=== PATIENT | female | born 1990 | race Caucasian/White ===

== ENCOUNTER 2020-09-12 09:30 | Emergency (ER) | payer MEDICARE, MEDICAID, SELFPAY ==
[2020-09-12 09:31] VITALS: BP 157/65; PULSE 90; RESP 20; TEMP 36.7; O2SAT 99; BMI 38.5
--- NOTE | 2020-09-12 09:39 | ED_ITS ---
HPI - Back Pain/Injury General: Chief Complaint: Back Pain/Injury Stated Complaint: LOW BACK PAIN Time Seen by Provider: 09/12/20 09:31 Source: patient Mode of arrival: EMS History of Present Illness: HPI Narrative: 30-year-old female presented with complaints of low back pain since yesterday. She was standing at the counter, making a sandwich, she felt a pop and sudden pain in her low back., the pain has been continuous since then. Worse with movement-especially bending, getting out of bed, better with rest. Pain does not radiate. No weakness or numbness in her legs. No bowel or bladder changes. No fever. She took some [id number]-ufemlac Tylenol last night, otherwise has not taken anything yet today. No dysuria. She denies any history of back pain. Onset (ago): day(s) Similar Symptoms Previously: No Quality: sharp, stabbing and spasming Radiation: none Associated symptoms: Deny abdominal pain, chills, dysuria, fatigue, fever(s), nausea, syncope or vomiting Review of Systems General: Reports: 10 or more systems reviewed and unremarkable except in HPI and below Const: Denies: fever(s), chills, fatigue, night sweats or diaphoresis Card: Denies: chest pain, palpitations or syncope Resp: Denies: dyspnea, productive cough or pain on inspiration GI: Denies: abdominal pain, nausea or vomiting : Denies: flank pain, difficulty voiding, dysuria or urinary frequency Musc: Reports: back pain and limited range of motion; Denies: neck pain, extremity pain, muscle weakness or decrease in muscle mass Skin/Breast: Denies: rash or erythema Neuro: Denies: numbness in extremities or weakness in extremities Endo: Denies: polyuria or polydipsia Joel/Lymph: Denies: easy bruising or easy bleeding Physical Exam Const: COMMON NORMALS: alert GENERAL APPEARANCE: cooperative and anxious; not in distress and not diaphoretic NUTRITIONAL APPEARANCE: obese morbidly obese ORIENTATION/CONSCIOUSNESS: Yes awake, Yes oriented to person, Yes oriented to place and Yes oriented to time HENMT: COMMON NORMALS: normocephalic, atraumatic and Normal external nose present HEAD & SCALP: normocephalic and atraumatic FACE & SINUS: normal facial exam and face symmetric NOSE: Normal external nose present Eye: COMMON NORMALS: Equal, round and reactive pupils present, EOMs intact bilaterally and no scleral icterus PUPIL: Yes Equal, round and reactive pupils present Neck/C-Spine: COMMON NORMALS: full ROM and no lymphadenopathy Resp: COMMON NORMALS: normal respiratory effort and No use of accessory muscles EFFORT & INSPECTION: Yes able to speak in complete sentences and No respiratory distress Cardio: COMMON NORMALS: regular rate RATE: regular rate GI: COMMON NORMALS: Normal to inspection, nondistended, normoactive bowel sounds present, non-tender and no masses : COMMON NORMALS: Yes no CVA tenderness BLADDER/KIDNEY EXAM: Yes no CVA tenderness Back/Pelvis: COMMON NORMALS: no CVA tenderness GENERAL BACK: No erythema, No ecchymosis, No swelling and Yes tenderness LUMBAR SPINE/LOWER BACK: Yes ROM limited, Yes pain with ROM, Yes lumbar spinal tenderness Lumbar spinal tenderness location: L5, Yes paraspinal muscle tenderness and Yes paraspinal muscle spasm SACRUM: no ecchymosis, no erythema, no swelling and tenderness COCCYX: no swelling Extremity: COMMON NORMALS: capillary refill normal GENERAL: No clubbing and No cyanosis Neuro: SENSORIUM/ORIENTATION: Yes alert, Yes oriented to person, Yes oriented to place and Yes oriented to time CRANIAL NERVES: Yes CN normal except as noted Psych: ACTIVITY/MOTOR BEHAVIOR: Yes appropriate eye contact Skin: COMMON NORMALS: no rashes or lesions noted GENERAL SKIN EXAM: no rashes or lesions noted, no ecchymo, no erythema and no induration RASHES: no rashes TRAUMA: no lacerations or abrasions Course Vital Signs: Vital signs: Vital Signs Temperature 98.6 F 09/12/20 11:45 Pulse Rate 73 09/12/20 11:45 Respiratory Rate 18 09/12/20 11:45 Blood Pressure 129/66 09/12/20 11:45 Pulse Oximetry 97 09/12/20 11:45 MDM - Back Pain/Injury MDM Narrative: Medical decision making narrative: 30-year-old female with acute low back pain. No neuro deficits. Exam consistent with low back musculoskeletal strain. No fever. No UTI. She was given a dose of IM ketorolac and hydrocodone. Will be discharged with a prescription for meloxicam. She already takes tizanidine for chronic neck and shoulder spasms. She has a follow-up already scheduled with her PCP next week. Differential Diagnosis: Differential diagnosis back pain/injury: Likely lumbar radiculopathy, strain of lumbar region, pyelonephritis and discitis Medical Records: Attestation: I reviewed the patient's medical records. Lab Data: Attestation: I reviewed the patient's lab results. Labs: Lab Results 09/12/20 09/12/20 09/12/20 Range/Units 10:00 10:00 10:00 HCG, Qual Negative (Negative) Urine Color Straw (Yellow) Urine Appearance Clear (CLEAR) Urine pH 7 (5-7) Ur Specific Gravit y 1.010 (1.005-1.030) Urine Protein Neg (Negative) Urine Glucose (UA) Norm (Normal) Urine Ketones Negative (Negative) Urine Blood Neg (Negative) Urine Nitrate Negative (Negative) Urine Bilirubin Neg (Negative) Urine Urobilinogen Neg (Negative) mg/dL Ur Leukocyte Tamela ase Negative (Negative) Urine RBC None (0-2) /hpf Urine WBC None (0-5) /hpf Ur Squamous Epith Cells 0-4 H (0-5) /hpf Amorphous Sediment Not Reportable Urine Bacteria Trace (NONE) /hpf Urine Opiates Scre en Negative (Negative) ng/mL Ur Barbiturates Sc reen Negative (Negative) ng/mL Ur Phencyclidine S crn Negative (Negative) ng/mL Ur Amphetamines Sc reen Negative (Negative) ng/mL U Benzodiazepines Scrn Negative (Negative) ng/mL Urine Cocaine Scre en Negative (Negative) ng/mL U Marijuana (THC) Screen Negative (Negative) ng/mL Discharge Plan Discharge Patient Disposition: Home Clinical Impression: Strain of lumbar region Qualifiers: Encounter type: initial encounter Qualified Code(s): S39.012A - Strain of muscle, fascia and tendon of lower back, initial encounter Condition: Stable Prescriptions: New meloxicam 15 mg tablet 15 mg PO DAILY Qty: 14 RF: 0 No Action Estarylla 0.25-35 mg-mcg tablet 1 tab PO DAILY@0200 RF: 0 loperamide 2 mg capsule 2 mg PO PRN PRN (Reason: loose stools) RF: 0 tizanidine 4 mg tablet 4 mg PO TID PRN (Reason: muscle spasms) RF: 0 valacyclovir 1 gram tablet 1,000 mg PO BID RF: 0 sumatriptan succinate 100 mg tablet 100 mg PO PRN PRN (Reason: Migraine Headache) RF: 0 Excedrin Migraine 250-250-65 mg Tablet 1 tab PO Q6H PRN (Reason: migraines) RF: 0 Discharge Orders: Discharge ED (Routine); Ordered 09/12/20 Ordered By: Melia Garcia Referrals: Janel Lozano APRN [Primary Care Provider] - Discharge Diet: Usual diet Discharge Activity: Resume usual activity Patient Instructions: Acute Low Back Pain (ED) Activity Restrictions/Additional Instructions: Call to schedule follow-up appointment with your primary care doctor in the next 3 to 5 days. Try and stay as active as possible; staying in 1 position for too long will make your pain worse. Take frequent walks, gentle stretching. Return immediately to the ER if you develop fever, worsening pain, weakness or numbness in your legs, or any other concerning changes. Coding Level of Care Code ED Medical Or Surgical Instrument Maker for John Fwd Exam Comprehensive
[2020-09-12 09:40] VITALS: BP 138/75; PULSE 889; RESP 18; O2SAT 95
[2020-09-12 10:06] LABS: HCG Qualitative Urine. Negative (Negative)
[2020-09-12 10:20] LABS: Amphetamines Screen Urine Negative (Negative); Barbiturates Screen Urine Negative (Negative); Benzodiazepines Screen Urine Negative (Negative); Cocaine Screen Urine Negative (Negative); Opiate Screen Urine Negative (Negative); PCP Screen Urine Negative (Negative); THC Screen Urine Negative (Negative)
[2020-09-12 10:31] LABS: Add Urine Culture? No; Bacteria Urine TRACE /hpf; Bilirubin Urine Neg (Negative); Blood Urine Neg (Negative); Glucose Urine UA Norm (Normal); Ketones Urine Negative (Negative); Leukocyte Esterase Urine Negative (Negative); Nitrate Urine Negative (Negative); Protein Urine Neg (Negative); Squamous Epithelial Cell Urine 0-4 /hpf (0-5); Urine Appearance Clear (CLEAR); Urine Color Straw (Yellow); Urobilinogen Urine Neg (Negative); pH Urine 7 (5-7)
[2020-09-12] MEDS: ketorolac 30 mg/mL INJ IM (11:36)
[2020-09-12] MEDS: HYDROcodone-acetaminophen 7.5-325 mg Tablet 1 TAB PO (11:36)
[2020-09-12 11:40] VITALS: BP 129/66; PULSE 74; RESP 18; O2SAT 97
[2020-09-12 11:45] VITALS: BP 129/66; PULSE 73; RESP 18; TEMP 37; O2SAT 97
== END 2020-09-12 11:54 | disposition home or self-care (01) ==
PROVIDERS: Emergency Provider Family Medicine; PCP Clinical Nurse Specialist Adult Health
DX: S39.012A Strain of muscle, fascia and tendon of lower back, initial encounter (principal); X58.XXXA Exposure to other specified factors, initial encounter; Z79.899 Other long term (current) drug therapy
CPT/HCPCS: 12345; 80306; 81001; 81025; 96372; 99282; 99283; J1885